=== PATIENT | female | born 1995 | race African-American/Black ===

== ENCOUNTER 2021-08-08 21:52 | Inpatient (IN) | payer OTHER ==
[~2021-08-08] VITALS: Ht 162.6 cm; Wt 78.6 kg
[2021-08-08] MEDS ORDERED: IV RINGERS,LACTATED 1000ML 1,000 ML IV PRN (22:00)
[2021-08-08 22:21] LABS: BILIRUBIN,URINE NEGATIVE (NEG); CLARITY,URINE CLEAR; COLOR,URINE STRAW; NITRITE,URINE NEGATIVE (NEG); PROTEIN,URINE NEGATIVE (NEG-TRACE); UROBILINOGEN,URINE 0.2 mg/dL (0.2 mg/dL)
[2021-08-08 22:24] LABS: BACTERIA,URINE 0 /HPF (0-FEW); RBC,URINE RARE /HPF (0-2); WBC,URINE RARE /HPF (0-4)
[2021-08-08] MEDS ORDERED: 0.9 % SODIUM CHLORIDE 10 ML DISP.SYRIN. IV PRN (23:30)
[2021-08-08] MEDS ORDERED: LIDOCAINE 1% PF 30 ML VIAL. INJ PRN (23:30)
[2021-08-08] MEDS ORDERED: BUTORPHANOL 2 MG/ML VIAL. IVP PRN ×2 (23:30)
[2021-08-08] MEDS ORDERED: IV RINGERS,LACTATED 1000ML 1,000 ML IV SCH (23:30)
[2021-08-08] MEDS ORDERED: OXYTOCIN 30 UNIT/500 ML PREMIX 500 ML IV PRN ×2 (23:30)
[2021-08-08] MEDS ORDERED: TERBUTALINE 1 MG/ML VIAL. SQ PRN (23:30)
[2021-08-08] MEDS ORDERED: ACETAMINOPHEN 325 MG TABLET. PO PRN (23:30)
[2021-08-08] MEDS ORDERED: PENICILLIN G K 5,000,000 UNIT in IV DEXTROSE 5% 100ML 100 ML IV ONE (23:30)
[2021-08-09] VITALS (7 sets, daily range): BP systolic 102–125; BP diastolic 57–68
[2021-08-09 00:09] LABS: BASO % 1 % (0-3); EOS # 0.1 x10^3/uL (0.0-0.7); EOS % 1 % (0-3); HEMATOCRIT 36.3 % (36.0-47.0); HEMOGLOBIN 11.6 g/dL (12.0-15.5); LYMPH # 2.8 x10^3/uL (1.0-4.8); LYMPH % 31 % (24-48); MEAN CORPUSCULAR HEMOGLOBIN 28 pg (25-35); MEAN CORPUSCULAR HGB CONC 32 g/dL (31-37); MEAN CORPUSCULAR VOLUME 86 fL (79-100); MONO # 0.6 x10^3/uL (0.0-1.1); MONO % 7 % (0-9); NEUT # 5.5 x10^3/uL (1.8-7.7); NEUT % 61 % (31-73); PLATELET COUNT 205 x10^3/uL (140-400); RED BLOOD COUNT 4.22 x10^6/uL (3.50-5.40); RED CELL DISTRIBUTION WIDTH 15.1 % (11.5-14.5); WHITE BLOOD COUNT 9.1 x10^3/uL (4.0-11.0)
[2021-08-09] MEDS ORDERED: fentaNYL PF VIAL 100 MCG/2 ML VIAL ONE (00:42)
[2021-08-09] MEDS ORDERED: fentaNYL PF VIAL 100 MCG/2 ML VIAL IVP ONE (00:45)
--- NOTE | 2021-08-09 01:06 | PDOC1 ---
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 SVE 4cm on arrival with progressive change to 5cm over the course of two hours. has been uncomplicated. Pelvis proven to 7lb 8oz. History of PPD following each delivery. Otherwise denies complaints. Pertinent labs: BT: B+, ab neg RPR NR RI Hep B Neg HIV Neg No GTT GBS POSITIVE H&H: 11.6/36.3 Past Medical History: PMH: PP depression following each delivery. Otherwise unremarkable. Cardiovascular: No pertinent hx Pulmonary: No pertinent hx GI: No pertinent hx Heme/Onc: No pertinent hx Hepatobiliary: No pertinent hx Rheumatologic: No pertinent hx Infectious disease: No pertinent hx ENT: No pertinent hx Renal/: No pertinent hx Endocrine: No pertinent hx Dermatology: No pertinent hx Grav: 4 Para: 3 Past Surgical History: Negative Social History: Smoke: No ALCOHOL: none Drugs: None Medications: Meds: Current Medications Medications (Trade) Dose Ordered Sig/Duke Route PRN Reason Start Time Stop Time Status Last Admin Dose Admin Ringer's Solution 1,000 ml @ 125 mls/hr Q8H IV 08/08/21 23:30 08/08/21 23:57 Penicillin G Potassium [id number] unit/Dextrose 100 ml @ 100 mls/hr 1X ONCE IV 08/08/21 23:30 08/09/21 00:29 DC 08/08/21 23:57 Fentanyl Citrate (Fentanyl 2ml Vial) 100 mcg 1X ONCE IVP 08/09/21 00:45 08/09/21 00:47 DC 08/09/21 00:45 Allergies: Coded Allergies: No Known Drug Allergies (Unverified , 08/08/21) Physical Exam: PE: GENERAL: No apparent distress. Alert and oriented. HEENT: Head normocephalic, atraumatic. NECK: Supple LUNGS: Clear to auscultation. HEART: RRR, S1, S2 present, pulses intact ABDOMEN: Soft, positive bowel sounds. EXTREMITIES: No cyanosis or edema. NEUROLOGIC: Normal speech, normal tone PSYCHIATRIC: Normal affect, normal mood. SKIN: No ulceration. Labs: Laboratory Tests Test 08/08/21 22:10 08/08/21 23:50 08/08/21 23:55 Urine Collection Type Unknown Urine Color Straw Urine Clarity Clear Urine pH 7.0 (<5.0-8.0) Urine Specific [place] 1.015 (1.000-1.030) Urine Protein Negative mg/dL (NEG-TRACE) Urine Glucose (UA) Negative mg/dL (NEG) Urine Ketones (Stick) Negative mg/dL (NEG) Urine Blood Negative (NEG) Urine Nitrite Negative (NEG) Urine Bilirubin Negative (NEG) Urine Urobilinogen Dipstick 0.2 mg/dL (0.2 mg/dL) Urine Leukocyte Esterase Negative (NEG) Urine RBC Rare /HPF (0-2) Urine WBC Rare /HPF (0-4) Urine Squamous Epithelial Cells Mod /LPF Urine Bacteria 0 /HPF (0-FEW) Urine Mucus Slight /LPF White Blood Count 9.1 x10^3/uL (4.0-11.0) Red Blood Count 4.22 x10^6/uL (3.50-5.40) Hemoglobin 11.6 g/dL (12.0-15.5) L Hematocrit 36.3 % (36.0-47.0) Mean Corpuscular Volume 86 fL (79-100) Mean Corpuscular Hemoglobin 28 pg (25-35) Mean Corpuscular Hemoglobin Concent 32 g/dL (31-37) Red Cell Distribution Width 15.1 % (11.5-14.5) H Platelet Count 205 x10^3/uL (140-400) Neutrophils (%) (Auto) 61 % (31-73) Lymphocytes (%) (Auto) 31 % (24-48) Monocytes (%) (Auto) 7 % (0-9) Eosinophils (%) (Auto) 1 % (0-3) Basophils (%) (Auto) 1 % (0-3) Neutrophils # (Auto) 5.5 x10^3/uL (1.8-7.7) Lymphocytes # (Auto) 2.8 x10^3/uL (1.0-4.8) Monocytes # (Auto) 0.6 x10^3/uL (0.0-1.1) Eosinophils # (Auto) 0.1 x10^3/uL (0.0-0.7) Basophils # (Auto) 0.0 x10^3/uL (0.0-0.2) SARS-CoV-2 Antigen (Rapid) Negative (NEGATIVE) Laboratory Tests 08/08/21 23:50 Laboratory Tests 08/08/21 23:50 Assessment & Plan: 26yo @ 39.4 weeks 1. Spontaneous labor 2. GBS positive 3. No GCT 4. s/p TDaP 06/26 5. Cat I FHT ELIZABETH GIL CNM Aug 09, 2021 01:06
--- NOTE | 2021-08-09 01:11 | PDOC4 ---
VAGINAL DELIVERY DATE DATE: 08/09/21 TIME: 01:06 TIME 0033 : 4 Para: 3 EDC: Aug 11, 2021 EGA: 39.5 VAGINAL DELIVERY: VTX VACCUM ASSISTED: No PLACENTA: Spontaneous 9/9 SEX: Male WEIGHT Weight [[id number]] Nuchal Cord: No Amniotic Fluid: Clear PAIN: Natural EPISIOTOMY: No EBL 350mL COMPLICATIONS None ADDITIONAL NOTES Precipitous delivery attended by Jonh Meyers RN and Zenon Barba RN. CNM at bedside at 0039. Placenta delivered, spontaneously at 0042, appearing grossly normal and intact with 3VC. Intact perineum. Both mother and infant are stable - routine PP course is anticipated. Signs of Intrauterine Infectio: None Shoulder Dystocia: No DIAGNOSIS ELIZABETH GIL CNM Aug 09, 2021 01:11
[2021-08-09] MEDS ORDERED: BENZOCAINE 20% TOPICAL AEROSOL SPRAY 57GM CAN. TP PRN (01:15)
[2021-08-09] MEDS ORDERED: ACETAMINOPHEN 325 MG TABLET. PO PRN (01:15)
[2021-08-09] MEDS ORDERED: MMR per PROTOCOL. MC PRN (01:15)
[2021-08-09] MEDS ORDERED: SIMETHICONE 80 MG TAB.CHEW PO PRN (01:15)
[2021-08-09] MEDS ORDERED: ZOLPIDEM 5 MG TABLET. PO PRN (01:15)
[2021-08-09] MEDS ORDERED: diphenhydrAMINE HCL 25 MG CAPSULE PO PRN (01:15)
[2021-08-09] MEDS ORDERED: MAGNESIUM HYDROXIDE 2,400 MG/30 ML ORAL.SUSP. PO PRN (01:15)
[2021-08-09] MEDS ORDERED: MAG HYDROX/ALUMINUM HYD/SIMETH 30 ML ORAL.SUSP PO PRN (01:15)
[2021-08-09] MEDS ORDERED: 0.9 % SODIUM CHLORIDE 10 ML DISP.SYRIN. IV PRN (01:15)
[2021-08-09] MEDS ORDERED: OXYTOCIN 30 UNIT/500 ML PREMIX 500 ML IV PRN (01:15)
[2021-08-09] MEDS ORDERED: PHENYLEPH/MINERAL OIL/PETROLAT RECTAL OINTMENT TUBE. RC PRN (01:15)
[2021-08-09] MEDS ORDERED: HYDROCORTISONE 1% TOPICAL OINTMENT 30GM TUBE. TP PRN (01:15)
[2021-08-09] MEDS ORDERED: TDaP (BOOSTRIX) per PROTOCOL. MC PRN (01:15)
[2021-08-09] MEDS: IBUPROFEN 400 MG TABLET. PO PRN ×3 (02:58→20:15)
[2021-08-09] MEDS ORDERED: PENICILLIN G K 2,500,000 UNIT in IV DEXTROSE 5% 50 ML IV SCH (03:30)
[2021-08-09] MEDS: DOCUSATE SODIUM 100 MG CAPSULE. PO PRN (11:07)
[2021-08-09] MEDS: MULTIVITAMIN with MINERAL TABLET. PO SCH (11:07)
[2021-08-10 02:30] VITALS: BP 108/61
[2021-08-10 06:00] VITALS: BP 104/52
[2021-08-10 07:19] LABS: BASO % 0 % (0-3); EOS # 0.1 x10^3/uL (0.0-0.7); EOS % 1 % (0-3); HEMATOCRIT 33.9 % (36.0-47.0); HEMOGLOBIN 11.1 g/dL (12.0-15.5); LYMPH # 2.7 x10^3/uL (1.0-4.8); LYMPH % 31 % (24-48); MEAN CORPUSCULAR HEMOGLOBIN 28 pg (25-35); MEAN CORPUSCULAR HGB CONC 33 g/dL (31-37); MEAN CORPUSCULAR VOLUME 85 fL (79-100); MONO # 0.5 x10^3/uL (0.0-1.1); MONO % 6 % (0-9); NEUT # 5.4 x10^3/uL (1.8-7.7); NEUT % 62 % (31-73); PLATELET COUNT 181 x10^3/uL (140-400); RED CELL DISTRIBUTION WIDTH 14.9 % (11.5-14.5); WHITE BLOOD COUNT 8.8 x10^3/uL (4.0-11.0)
[2021-08-10] MEDS: FERROUS SULFATE 325 MG TABLET. PO SCH ×2 (08:00→17:00)
[2021-08-10] MEDS: MULTIVITAMIN with MINERAL TABLET. PO SCH (08:30)
[2021-08-10] MEDS: DOCUSATE SODIUM 100 MG CAPSULE. PO PRN ×2 (08:30→16:33)
[2021-08-10] MEDS: IBUPROFEN 400 MG TABLET. PO PRN ×2 (08:31→16:34)
[2021-08-10 13:27] VITALS: BP 104/62
--- NOTE | 2021-08-10 14:09 | PDOC ---
WEARING [employer]PAR[employer]DER PROGRESS NOTE Date of Service: DATE: 08/10/21 TIME: 14:05 Subjective: Doing well. Pain well managed with PO meds. independently. Tolerates activity, diet, and voiding without difficulty. Objective: Objective: FF @ U/1, scant lochia. No edema. Vital Signs: Vital Signs Date Time Temp Pulse Resp B/P (MAP) Pulse Ox O2 Delivery O2 Flow Rate FiO2 08/09/21 07:10 98.1 65 16 103/58 (73) 100 Room Air 98.1 Vital Signs Date Time Temp Pulse Resp B/P (MAP) Pulse Ox O2 Delivery O2 Flow Rate FiO2 08/10/21 13:27 97.9 63 20 104/62 (76) 98 97.9 08/10/21 08:00 Room Air Labs: Laboratory Tests Test 08/10/21 06:20 White Blood Count 8.8 x10^3/uL (4.0-11.0) Red Blood Count 4.00 x10^6/uL (3.50-5.40) Hemoglobin 11.1 g/dL (12.0-15.5) L Hematocrit 33.9 % (36.0-47.0) L Mean Corpuscular Volume 85 fL (79-100) Mean Corpuscular Hemoglobin 28 pg (25-35) Mean Corpuscular Hemoglobin Concent 33 g/dL (31-37) Red Cell Distribution Width 14.9 % (11.5-14.5) H Platelet Count 181 x10^3/uL (140-400) Neutrophils (%) (Auto) 62 % (31-73) Lymphocytes (%) (Auto) 31 % (24-48) Monocytes (%) (Auto) 6 % (0-9) Eosinophils (%) (Auto) 1 % (0-3) Basophils (%) (Auto) 0 % (0-3) Neutrophils # (Auto) 5.4 x10^3/uL (1.8-7.7) Lymphocytes # (Auto) 2.7 x10^3/uL (1.0-4.8) Monocytes # (Auto) 0.5 x10^3/uL (0.0-1.1) Eosinophils # (Auto) 0.1 x10^3/uL (0.0-0.7) Basophils # (Auto) 0.0 x10^3/uL (0.0-0.2) Laboratory Tests 08/10/21 06:20 Laboratory Tests 08/10/21 06:20 Physical Exam: GENERAL: No apparent distress. Alert and oriented. HEENT: Head normocephalic, atraumatic. NECK: Supple LUNGS: Clear to auscultation. HEART: RRR, S1, S2 present, pulses intact ABDOMEN: Soft, positive bowel sounds. EXTREMITIES: No cyanosis or edema. NEUROLOGIC: Normal speech, normal tone PSYCHIATRIC: Normal affect, normal mood. SKIN: No ulceration. Assessment & Plan: PPD # 1, routine PP care, anticipate d/c home tomorrow. ELIZABETH GIL CNM Aug 10, 2021 14:09
[2021-08-10 18:30] VITALS: BP 113/69
[2021-08-10 20:15] VITALS: BP 118/66
[2021-08-10 20:16] VITALS: BP 124/79
[2021-08-10] MEDS: OMEGA-3 FATTY ACIDS/FISH OIL 1,000 MG CAPSULE. PO SCH (20:22)
[2021-08-10] MEDS: CETIRIZINE HCL 10 MG TABLET. PO SCH (20:22)
[2021-08-10] MEDS: CALCIUM CARBONATE 500 MG TABLET PO SCH (20:22)
[2021-08-10] MEDS: CHOLECALCIFEROL (VITAMIN D3) 5,000 UNIT CAPSULE PO SCH (20:22)
--- NOTE | 2021-08-10 21:50 | NUR ---
Vital signs documented on 08/10 at 2014 were on the wrong patient. Correct v/s documented at 2015. Addendum: 08/10/21 at 2151 by INES KAUR RN Amended: Links added.
[2021-08-11 02:00] VITALS: BP 114/75
[2021-08-11 08:00] VITALS: BP 111/74
[2021-08-11] MEDS: FERROUS SULFATE 325 MG TABLET. PO SCH (08:00)
[2021-08-11] MEDS: OMEGA-3 FATTY ACIDS/FISH OIL 1,000 MG CAPSULE. PO SCH (09:00)
[2021-08-11] MEDS: CALCIUM CARBONATE 500 MG TABLET PO SCH (09:00)
[2021-08-11] MEDS: CETIRIZINE HCL 10 MG TABLET. PO SCH (09:00)
[2021-08-11] MEDS: CHOLECALCIFEROL (VITAMIN D3) 5,000 UNIT CAPSULE PO SCH (09:00)
[2021-08-11] MEDS: MULTIVITAMIN with MINERAL TABLET. PO SCH (09:00)
[2021-08-11] MEDS ORDERED: IBUP-1060 PO (09:30)
[2021-08-11] MEDS ORDERED: DOCU-109 PO (09:30)
[2021-08-11] MEDS: IBUPROFEN 400 MG TABLET. PO PRN (11:18)
--- NOTE | 2021-08-11 11:35 | PDOC ---
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 [place] PO. Voiding. Minimal lochia. Objective: Vital Signs: Vital Signs Date Time Temp Pulse Resp B/P (MAP) Pulse Ox O2 Delivery O2 Flow Rate FiO2 08/10/21 08:00 Room Air 08/10/21 13:27 97.9 63 20 104/62 (76) 98 97.9 Vital Signs Date Time Temp Pulse Resp B/P (MAP) Pulse Ox O2 Delivery O2 Flow Rate FiO2 08/11/21 08:00 Room Air 08/11/21 08:00 97.9 62 18 111/74 (86) 99 97.9 Physical Exam: GENERAL: No apparent distress. Alert and oriented. HEENT: Head normocephalic, atraumatic. NECK: Supple LUNGS: Clear to auscultation. HEART: RRR, S1, S2 present, pulses intact ABDOMEN: Soft, positive bowel sounds. EXTREMITIES: No cyanosis or edema. NEUROLOGIC: Normal speech, normal tone PSYCHIATRIC: Normal affect, normal mood. SKIN: No ulceration. FFNT below umb No C/C/E Assessment & Plan: A/P 26y PPD #2 s/p 1.) PP doing well 2.) TDAP given 06/30/21 3.) Hgb 11.6 -> 11.1 4.) D/c home JUDY MARQUEZ MD Aug 11, 2021 11:35
[2021-08-11] MEDS: DOCUSATE SODIUM 100 MG CAPSULE. PO PRN (12:16)
[2021-08-11 13:00] VITALS: BP 109/70
--- NOTE | 2021-08-11 13:11 | NUR ---
Pt. discharges off the floor via ambulation accompanied by and infant at 1311. Pt. alert, oriented and VSS. RN had reviewed pt. discharge instructions with pt. and pt. verbalized understanding to teaching at this time. All belongings discharge with pt.
== END 2021-08-11 13:11 | disposition home or self-care (01) | DRG 807 ==
LOC: 3 SO LND 21:52 → OBSVTOIN 21:52 → 3 SO LND 23:32
PROVIDERS: ADMIT Registered Nurse; ATTEND Registered Nurse
PROC: 10E0XZZ Delivery of Products of Conception, External Approach (ICD-10-PCS; principal; 2021-08-09)
DX: O99.824 Streptococcus B carrier state complicating childbirth (principal); Z37.0 Single live birth; Z3A.39 39 weeks gestation of pregnancy; O62.3 Precipitate labor; Z20.822 Contact with and (suspected) exposure to COVID-19
CPT/HCPCS: 36415; 81001; 85025; 86592; 86850; 86900; 86901; 87426; J2540; J3010; J7060; J7120; U0003; G0378